=== PATIENT | female | born 1960 | race Caucasian/White ===

== ENCOUNTER 2021-04-10 10:02 | Emergency (ER) | payer OTHER, SELFPAY ==
[2021-04-10 10:14] VITALS: TEMP 97.6; BMI 20.3
[2021-04-10] MEDS ORDERED: ONDANSETRON 4 MG/2 ML VIAL IVPB ONE (10:31)
[2021-04-10] MEDS ORDERED: ONDANSETRON 4 MG/2 ML VIAL ONE (10:41)
[2021-04-10] MEDS ORDERED: ONDANSETRON 4 MG TABLET PO ONE (11:06)
[2021-04-10 11:14] LABS: BASO % 0.6 % (0-2.0); EOS % 1.1 % (0-4.5); EPI CELLS 5 /uL (0-25.1); HEMATOCRIT 40.7 % (32.4-45.2); HEMOGLOBIN 13.7 GM/dL (10.7-15.3); HYALINE CASTS 0 /uL (0-3.1); LYMPH % 21.9 % (8-40); MCH 28.8 pg (25.7-33.7); MCHC 33.7 g/dl (32.0-36.0); MEAN CELL VOLUME 85.4 fl (80-96); MEAN PLT VOLUME 8.9 fl (7.5-11.1); MONO % 8.1 % (3.8-10.2); NEUT % 68.3 % (42.8-82.8); PH,URINE 7.5 (5.0-8.0); PLATELET COUNT 231 10^3/uL (134-434); RBC 4.77 M/mm3 (3.60-5.2); RDW 15.2 % (11.6-15.6); URINE APPEARANCE CLEAR; URINE BACTERIA 136 /uL (0-1359); URINE BILIRUBIN NEGATIVE (NEGATIVE); URINE COLOR YELLOW; URINE GLUCOSE (UA) NEGATIVE (NEGATIVE); URINE KETONE NEGATIVE (NEGATIVE); URINE LEUK ESTERASE TRACE (NEGATIVE); URINE NITRITE NEGATIVE (NEGATIVE); URINE PROTEIN NEGATIVE (NEGATIVE); URINE RBC 5 /uL (0-23.9); URINE UROBILINOGEN 0.2 mg/dL (0.2-1.0); URINE WBC 8 /uL (0-25.8); WHITE BLOOD COUNT 4.3 K/mm3 (4.0-10.0)
[2021-04-10 11:32] LABS: ALBUMIN 4.3 g/dl (3.4-5.0); CALCIUM 9.6 mg/dL (8.5-10.1)
[2021-04-10 11:33] LABS: MAGNESIUM 2.4 mg/dL (1.8-2.4)
[2021-04-10 11:35] LABS: CREATININE 0.8 mg/dL (0.55-1.3); PHOSPHOROUS 3.1 mg/dL (2.5-4.9)
[2021-04-10 11:36] LABS: BILIRUBIN,TOTAL 0.4 mg/dL (0.2-1)
[2021-04-10 11:37] LABS: TOT PROT 7.8 g/dl (6.4-8.2)
[2021-04-10 12:01] VITALS: BP 160/71; PULSE 73
== END 2021-04-10 12:16 | disposition home or self-care (01) ==
LOC: JER 10:02
DX: R11.0 Nausea (principal); I10 Essential (primary) hypertension
CPT/HCPCS: 36415; 80053; 81003; 83690; 83735; 84100; 84484; 85025; 93005; 93010; 99284-25